=== PATIENT | male | born 1945 ===

== ENCOUNTER 2016-03-05 15:01 | Day surgery (SDC) | payer OTHER, MEDICARE ==
[2016-03-05] MEDS ORDERED: LIDOCAINE 2% 5 ML SDV ONE (15:35)
[2016-03-05] MEDS ORDERED: DEXAMETHASONE 4 MG/ML VIAL ONE (15:35)
[2016-03-05] MEDS ORDERED: ROCURONIUM 100 MG/10 ML VIAL ONE (15:35)
[2016-03-05] MEDS ORDERED: PROPOFOL 200 MG/20 ML VIAL ONE (15:37)
[2016-03-05] MEDS ORDERED: CEFAZOLIN 2 GM/DEXTROSE/100 ML BAG IV ONE (15:45)
[2016-03-05] MEDS ORDERED: fentaNYL 100 MCG/2 ML INJ ONE (15:59)
[2016-03-05] MEDS ORDERED: SKIN ADHESIVE (DERMABOND) 1 EACH TP ONE (16:11)
[2016-03-05] MEDS ORDERED: LIDO/EPI 1% **Not for Epidural 20 ML MDV ONE ×2 (16:12→16:14)
[2016-03-05] MEDS ORDERED: MIDAZOLAM 2 MG/2 ML VIAL ONE (16:22)
[2016-03-05] MEDS ORDERED: LR 1,000 ML IV ONE (16:23)
[2016-03-05] MEDS ORDERED: SUCCINYLCHOLINE CHLORIDE*ANESTHESIA ONLY*200 MG/10 ML SYR IVP ONE (16:46)
--- NOTE | 2016-03-05 17:38 | NM ---
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 Technique: The procedure was discussed with the patient, who wished to proceed. The overlying scan at the site of the left facial melanoma was ChloraPrepped, and a cold anesthetic spray was applied befo re 3 circumferential subdermal injections were made, with a total of 422 uCi of technetium 99m Lympho seek provided. Subsequent imaging was acquired. The patient will be sent to the OR with Dr. Mariusz caldwell. Impression: Preoperative lymphoscintigraphy for sentinel node localization in this patient with a lef t facial melanoma.
[2016-03-05] MEDS ORDERED: ONDANSETRON 4 MG/2 ML VIAL ONE (17:48)
[2016-03-05] MEDS ORDERED: SUGAMMADEX SODIUM 200 MG/2 ML VIAL IVP ONE (17:51)
[2016-03-05] MEDS ORDERED: HYDROCODONE/APAP 5/325 TAB ONE (19:17)
[2016-03-06] MEDS ORDERED: ceFAZolin 2 GM/DEXTROSE 100 ML IV ONE (07:00)
--- NOTE | 2016-03-06 12:19 | GOP ---
[f rep st] OPERATIVE REPORT DATE OF OPERATION: 03/05/2016 SURGEON: Wilbur Plascencia MD CNA INSTRUCTOR: Dr. Malcolm Nice. ANESTHESIA: General. PREOPERATIVE DIAGNOSIS: Left facial melanoma. POSTOPERATIVE DIAGNOSIS: Left facial melanoma. PROCEDURE PERFORMED: Reconstruction of left facial defect after excision of melanoma. FINDINGS: SPECIMENS: No further specimens sent to Pathology after Dr. Nice's portion of the procedure. ESTIMATED BLOOD LOSS: Less than 25 mL. INDICATIONS: Left facial melanoma. DESCRIPTION OF PROCEDURE: HISTORY: A 70-year-old gentleman who has a left facial melanoma. Risks, benefits, indications, opti ons, possible complications of this procedure were discussed at length with the patient. Prior to si gning informed consent, he was given a chance to have his questions answered. Risks and complication s included, but were not limited to, bleeding, infection, paresthesia, facial deformity, facial nerve paresis and/or paralysis. Patient was aware of these risks as they were included in the discussion and was appropriated during the discussion. CASE REPORT: This dictation should follow Dr. Nice's dictation for the excision of the left facial melanoma and this dictation will encompass the reconstruction of the excised defect of the left face . Patient is a 70-year-old male. At the conclusion of the excision portion of the procedure performed by Dr. Nice, the patient had a surgical defect of 3.5 x 3.5 cm centered over the left lateral malar and zygomatic region. Wide undermining was then performed from this defect in a deep subcutaneous p baron to free up flaps for rotation and advancement for closure. The medial and lateral flaps were th en advanced into place and sewn in place with 4-0 Vicryl. Significant standing cone deformities were noted superiorly and inferiorly, and these were dealt with in an appropriate fashion to create a cur vilinear closure to blend in with a relaxed skin tension line of the left lateral cheek and face. On ce these standing cones were removed, the wound was closed in multiple layers using 4-0 Vicryl suture , 3-0 nylon, and 4-0 Prolene in interrupted fashion. After closure of the wound, minimal tension was noted and the wound was noted to be closed appropriately. There was no significant tension or defor mity along the left lower lid or canthal region, and nor was there any issue noted along the left ora l commissure and mouth region. The patient was then awakened and extubated uneventfully, and brought to recovery room in stable cond ition where he is expected to do well postoperatively. The wound was dressed with Bacitracin ointmen t. In the recovery room, facial nerves were noted to be all intact. /[id number]/MODL
== END 2016-03-05 19:25 | disposition home or self-care (01) ==
LOC: FSGY 15:01
PROVIDERS: ATTEND Otolaryngology
PROC: 3E0W3HZ Introduction of Radioactive Substance into Lymphatics, Percutaneous Approach (ICD-10-PCS; 2016-03-05)
PROC: 0JX10ZC Transfer Face Subcutaneous Tissue and Fascia with Skin, Subcutaneous Tissue and Fascia, Open Approach (ICD-10-PCS; principal; 2016-03-05 16:00)
PROC: 0JB10ZX Excision of Face Subcutaneous Tissue and Fascia, Open Approach, Diagnostic (ICD-10-PCS; 2016-03-05 16:00)
DX: C43.39 Malignant melanoma of other parts of face (principal); G47.33 Obstructive sleep apnea (adult) (pediatric); K21.9 Gastro-esophageal reflux disease without esophagitis; E78.00 Pure hypercholesterolemia, unspecified; E11.9 Type 2 diabetes mellitus without complications; H91.90 Unspecified hearing loss, unspecified ear; M51.36 Other intervertebral disc degeneration, lumbar region; M50.30 Other cervical disc degeneration, unspecified cervical region
CPT/HCPCS: 14041; 78195; A9520; J0330; J0690; J1100; J2250; J2405; J2704; J3010

== ENCOUNTER → 2018-01-28 | Outpatient (CLI) | payer OTHER, MEDICARE | LOC: FIMAGING 09:29 | PROVIDERS: ATTEND Internal Medicine | DX: N28.1 Cyst of kidney, acquired (principal); N40.3 Nodular prostate with lower urinary tract symptoms ==